=== PATIENT | female | born 1975 | race Two or more races ===

== ENCOUNTER 2022-05-01 10:06 | Emergency (ER) | payer OTHER, SELFPAY ==
[2022-05-01 10:12] VITALS: BP 116/70; PULSE 79; RESP 18; TEMP 36.8; O2SAT 98; BMI 36.6
--- NOTE | 2022-05-01 11:32 | ED.EXTPRO ---
HPI - Extremity Problem General Chief complaint: Extremity Injury, Upper Stated complaint: infected right thumb Time Seen by Provider: 05/01/22 11:32 Source: patient Mode of arrival: ambulatory Limitations: no limitations History of Present Illness HPI Narrative: 47-year-old female with no significant medical history presents for an infected right thumb. Patient states she pulled a hangnail off her right thumb and has had pain, swelling, redness, and pus developing along the nail line for the last week. Patient has drained it twice with a needle, and has drained some pus. Patient states it is not getting better despite her draining it and doing warm Epsom salt soaks patient feels well otherwise, no chest pain, no shortness of breath, no fevers, no lightheadedness, no dizziness Related Data Previous Rx's Medication Instructions Recorded doxycycline monohydrate 100 mg 100 mg PO BID 10 days #20 caps 05/01/22 capsule Allergies Allergy/AdvReac Type Severity Reaction Status Date / Time No Known Allergies Allergy Verified 05/01/22 11:33 Review of Systems Constitutional: Constitutional: Denies body ache(s), Denies chills, Denies fatigue, Denies fever(s), Denies headache(s), Denies malaise and Denies weakness Eyes: Eyes: Denies diplopia ENT: Denies vertigo, Denies dizziness, Denies otalgia, Denies headache(s), Denies mouth pain, Denies post nasal drip, Denies sinus pain, Denies sinus pressure, Denies sore throat and Denies throat swelling Cardiovascular: Cardiovascular: Denies chest pain, Denies syncope, Denies leg edema, Denies lightheadedness, Denies Loss of Consciousness, Denies palpitations and Denies dyspnea Respiratory: Respiratory: Denies chest congestion, Denies cough and Denies dyspnea Gastrointestinal: Gastrointestinal: Denies abdominal pain, Denies hematochezia, Denies constipation, Denies diarrhea and Denies vomiting Musculoskeletal: Comments: right thumb pain Integumentary/Breasts: Skin/Breast: Reports swelling and Reports erythema Comments: pus along nail edge right thumb Neurologic: Denies confusion, Denies vertigo, Denies dizziness, Denies syncope, Denies headache(s) and Denies weakness Psychiatric: Psychiatric: Denies anxiety, Denies confusion and Denies depression Endocrine: Endocrine: Denies fatigue and Denies palpitations Allergic/Immunologic: Allergic/Immunologic: Denies throat swelling PMFSH Social History Social History Advance Directives: No Advance Directives Information Provided: No Physical Exam Vital Signs: Vital Signs: Last Vital Signs Temp 98.3 F 05/01/22 10:12 Pulse 79 05/01/22 10:12 Resp 18 05/01/22 10:12 BP 116/70 05/01/22 10:12 Pulse Ox 98 05/01/22 10:12 O2 Del Method 05/01/22 10:12 BMI result Body Mass Index 36.6 Const: General: No confusion Nutritional Appearance: well nourished Orientation/consciousness: No confusion Limitations: no limitations Eyes: Conjunctivae: conjunctivae normal Pupils: Equal, round and reactive pupils present EOM: EOMs intact bilaterally Neck: Neck: Yes full ROM, Yes no lymphadenopathy and Yes supple Resp: Effort & Inspection: normal respiratory effort and able to speak in complete sentences Auscultation: clear to auscultation bilaterally, no crackles, no rales, no rhonchi and no wheezes Cardio: Rate: regular rate Rhythm: regular rhythm Heart sounds: S1 normal heart sound present and S2 normal heart sound present Skin: Other: redness, swelling, and pus under the skin along the nail bed of left thumb Neuro: General: No confusion Cranial nerves: Yes Equal, round and reactive pupils present Extrem: Left upper extremity: full ROM, normal capillary refill and hand Details: normal capillary refill, neuromotor exam normal, neurosensory exam normal, tenderness Location: of the thumb ( along nail bed) and normal ROM of fingers; no edema Psych: Appearance: grossly normal Affect: normal affect Attitude: cooperative Thought process: Normal thought process present Course Course Course Narrative: Right thumb paronychia patient has had redness, swelling, warmth, pus under the skin along the nail bed of her right thumb since pulling off a hangnail over week ago. Patient has been trying to drain it herself, using salt water soaks. Drained using 18 gauge needle, sterile technique used, 2 cc of pus expressed, place patient on doxycycline. Gave return precautions of worsening redness, swelling, warmth, fevers, patient verbalized agreement understanding of the plan. Discharge Plan Discharge Clinical Impression: Paronychia of finger of right hand Patient Disposition: Home, Self-Care Instructions: Paronychia (ED) Additional Instructions: please continue to soak your thumb, 10 minutes at a time in warm salt water 3 times a day for the next 3-4 days. Please take the antibiotics that I prescribed. Please do not really instrument your thumb. Please return to emergency room if you have worsening redness, pain, fevers, or any other new or concerning symptoms Prescriptions: New doxycycline monohydrate 100 mg capsule 100 mg PO BID 10 Days Qty: 20 0RF Interventions: ED Discharge Assessment Last Done: 05/01/22 11:40 Discharge Date/Time: 05/01/22 11:42
== END 2022-05-01 11:42 | disposition home or self-care (01) ==
PROVIDERS: Emergency Provider Emergency Medicine; PCP Internal Medicine
DX: L03.011 Cellulitis of right finger (principal); M79.644 Pain in right finger(s)
CPT/HCPCS: 10060; 10160; 99282; 99284

== ENCOUNTER 2022-11-10 13:00 | Outpatient (RCR) | payer OTHER, SELFPAY | END 2022-11-25 16:09 | disposition home or self-care (01) | LOC: HO.PT 13:00 | PROVIDERS: PCP Internal Medicine; Visit Provider Internal Medicine | DX: M54.9 Dorsalgia, unspecified (principal) | CPT/HCPCS: 97110; 97161 ==

== ENCOUNTER 2023-10-05 21:44 | Emergency (ER) | payer OTHER, SELFPAY ==
--- NOTE | ~2023-10-05 | XR_ITS ---
EXAMINATION: XR ANKLE, LEFT CLINICAL INFORMATION: Pain lateral malleolus COMPARISON: None available. TECHNIQUE: AP, lateral, and mortise views of the left ankle. FINDINGS: No fracture. No ankle joint effusion. Alignment is anatomic. No erosions. Joint spaces are maintained. Soft tissues are normal. A small accessory ossicle is present at the tip of the lateral malleolus. XR/XR ankle LT 2V IMPRESSION: Normal left ankle.
[2023-10-05 21:49] VITALS: BP 149/85; PULSE 81; RESP 18; TEMP 36.5; O2SAT 97; BMI 39.9
--- NOTE | 2023-10-05 21:58 | ED.LOWEXIN ---
HPI - Extremity Injury (Lower) General Chief Complaint: Extremity Injury, Lower Stated Complaint: L ankle pain Time Seen by Provider: 10/05/23 21:51 Source: patient Mode of arrival: ambulatory Limitations: no limitations History of Present Illness HPI Narrative: Patient comes to the emergency room complaining of left ankle pain on the lateral side for about 2 weeks. Patient states that she does not recall having any injuries, spraining her ankle or any blunt trauma. Patient states that it has been hurting constantly. No erythema, no increased warmth to the area. Patient states it feels like she sprained her ankle but without having any recent trauma. Patient denies pain in the lateral aspect of the foot or the heel. Patient states that she has history of claudication in the left leg. However, the pain that she is experiencing is constant, nonradiating, independent of exertion, but does hurt more bearing weight on the left foot Related Data Previous Rx's Medication Instructions Recorded doxycycline monohydrate 100 mg 100 mg PO BID 10 days #20 caps 05/01/22 capsule naproxen 500 mg tablet 500 mg PO BID PRN pain #14 tabs 10/05/23 Allergies Allergy/AdvReac Type Severity Reaction Status Date / Time No Known Allergies Allergy Verified 05/01/22 11:33 Review of Systems Review of Systems: Constitutional : No Weight loss, No Fever, No Chills, No Night Sweats, No Fatigue, No Malaise ENT/Mouth : No Hearing loss, No Ear Pain, No Nasal Congestion, No Sinus Pain, No Hoarseness, No sore throat, No Rhinorrhea, No Swallowing Difficulty Eyes: No Eye Pain, No Swelling, No Redness, No Foreign Body, No Discharge, No Vision Changes Cardiovascular : No Chest Pain, No SOB, No Dyspnea on Exertion, No Orthopnea, No Edema, No Palpitations Respiratory : No Cough, No Sputum, No Wheezing, No Smoke Exposure, No Dyspnea Gastrointestinal : No Nausea, No Vomiting, No Diarrhea, No Constipation, No abdominal Pain, No Hematochezia, No Melena Genitourinary : no irregular bleeding, No Dysuria, No Urinary Frequency, No Hematuria, No Urinary Incontinence, No Urgency, No Flank Pain, No Urinary Flow Changes, No Hesitancy Musculoskeletal : Complaining of left ankle pain in the lateral aspect, No Myalgias, No Joint Swelling Skin : No Skin Lesions, No rash Neuro : No Weakness, No Numbness, No Paresthesias, No Loss of Consciousness, No Dizziness, No Headache Psych : No Anxiety/Panic, No Depression, No SI/HI/AH/VH, No Social Issues, Heme/Lymph: No Bruising, No Bleeding,No Lymphadenopathy Endocrine : No Polyuria, No Polydipsia, No Temperature Intolerance [facility] Past Medical History Medical History (Updated 10/05/23 @ 23:32 by Rhea Baumann MD) Claudication Social History Social History Advance Directives: No Advance Directives Information Provided: No Physical Exam Vital Signs: Vital Signs: Last Vital Signs Temp 97.7 F 10/05/23 21:49 Pulse 81 10/05/23 21:49 Resp 18 10/05/23 21:49 BP 149/85 H 10/05/23 21:49 Pulse Ox 97 10/05/23 21:49 O2 Del Method Room Air 10/05/23 21:49 BMI result Body Mass Index 39.9 Const: Other: Appearance: Alert. Oriented X3. No acute distress. Eyes: Pupils equal, round and reactive to light. ENT: Pharynx normal. Neck: Normal inspection. Neck supple. No lymph nodes noted. No crepitus CVS: Normal heart rate and rhythm. Pulses normal. Normal S1 and S2 Respiratory: No respiratory distress. Breath sounds normal. No Wheezing. No rales Abdomen: Soft and nontender. No rigidity. No distention. Skin: Skin warm and dry. Normal skin color. Normal skin turgor. Extremities: No lower extremity edema, no swelling around the lateral malleolus on the left ankle, no pain to palpation on the lateral aspect of the foot, no heel pain, no pain in the Achilles tendon Neuro: Oriented X 3. No motor deficit. No sensory deficit. Moving all extremities. No slurred speech. CN 2 through 12 grossly intact Psych: calm, cooperative, normal affect Course Course Course Narrative: -x-rays pending Medical Decision Making Medical Decision Making MDM Narrative: -I discussed the physical exam with the patient, patient has no erythema, swelling, no obvious deformity. -we will obtain an x-ray to rule out any bony abnormality. However, I discussed with the patient that she will likely need a follow-up with Orthopedics and get an MRI -patient states that she does not want any pain medications, declines NSAIDs/anti inflammatories for now, but accept a prescription -gout, septic arthritis is not suspected -my interpretation of x-ray: No obvious fracture, normal alignment. Differential Diagnosis Differential Diagnoses: The differential diagnosis associated with the presentation includes (Ankle contusion, concussion, ankle sprain, tendinitis) Independent Interpretation I performed an independent interpretation of an: Plain X-Ray Radiology Impression Discussion of test interpretation with radiology: I have reviewed the radiologist's reading. Radiologist Impression: FINDINGS: No fracture. No ankle joint effusion. Alignment is anatomic. No erosions. Joint spaces are maintained. Soft tissues are normal. A small accessory ossicle is present at the tip of the lateral malleolus. XR/XR ankle LT 2V IMPRESSION: Normal left ankle Discharge Plan Discharge Clinical Impression: Ankle joint pain Patient Disposition: Home, Self-Care Instructions: Arthralgia (ED) Additional Instructions: Please follow-up with your primary care physician tomorrow. If you have any worsening or new symptoms, please return to the emergency room or call 911 Prescriptions: New naproxen 500 mg tablet 500 mg PO BID PRN (Reason: pain) Qty: 14 0RF No Action doxycycline monohydrate 100 mg capsule 100 mg PO BID 10 Days Qty: 20 0RF Referrals: Jayashree Silveira PA-C [Physician Chemical Worker] - 10/06/23
== END 2023-10-05 23:40 | disposition home or self-care (01) ==
PROVIDERS: Emergency Provider Emergency Medicine; PCP Internal Medicine
DX: M25.572 Pain in left ankle and joints of left foot (principal)
CPT/HCPCS: 73600; 99283

== ENCOUNTER 2023-11-06 23:31 | Emergency (ER) | payer OTHER, SELFPAY ==
[2023-11-06 23:41] VITALS: BP 134/66; PULSE 71; RESP 18; TEMP 36.8; O2SAT 98; BMI 39.7
--- NOTE | 2023-11-06 23:59 | ED_ITS ---
HPI - Extremity Injury (Lower) General Chief Complaint: Extremity Injury, Lower Stated Complaint: left ankle pain Time Seen by Provider: 11/06/23 23:58 Source: patient Mode of arrival: ambulatory Limitations: no limitations History of Present Illness HPI Narrative: Patient with History of plantar fasciitis been having pain in the left ankle for over a month seen by account leader will give cortisone injection in the joint still having the pain has slight swelling of the ankle joint no history of gout no history of any other joint pain patient's x-ray done before which was negative Related Data Previous Rx's Medication Instructions Recorded doxycycline monohydrate 100 mg 100 mg PO BID 10 days #20 caps 05/01/22 capsule naproxen 500 mg tablet 500 mg PO BID PRN pain #14 tabs 10/05/23 prednisone 20 mg tablet 40 mg (2 x 20 mg) PO DAILY #10 tabs 11/07/23 Allergies Allergy/AdvReac Type Severity Reaction Status Date / Time No Known Allergies Allergy Verified 11/06/23 23:47 Review of Systems 2 Review of Systems: Yes all other systems are reviewed and are negative [facility] Past Medical History Medical History (Updated 11/07/23 @ 00:24 by Puneet Hanna MD) Plantar fasciitis Claudication Social History Social History Smoked in Last 30 Days: No Use of substances other than those prescribed or required for medical reasons: No Advance Directives: No Advance Directives Information Provided: No Patient : No Physical Exam 2 Vital Signs: Vital Signs: Last Vital Signs Temp 98.3 F 11/06/23 23:41 Pulse 71 11/06/23 23:41 Resp 18 11/06/23 23:41 BP 134/66 11/06/23 23:41 Pulse Ox 98 11/06/23 23:41 O2 Del Method Room Air 11/06/23 23:41 BMI result Body Mass Index 39.7 Appearance: Alert. Oriented X3. No acute distress. CVS: Normal heart rate and rhythm. Pulses normal. Respiratory: No respiratory distress. Equal air entry bilateral, Extremities: No lower extremity edema. No calf tenderness diffuse tenderness left ankle joint with slight swelling no skin warmth good range of movement no tenderness in the sole of the foot Neuro: Oriented X 3. Medications Administered Discontinued Medications Generic Name Dose Route Start Last Admin Trade Name Scott PRN Reason Stop Dose Admin Prednisone 60 mg 11/07/23 00:19 11/07/23 00:56 Prednisone 20 Mg Tablet PO 11/07/23 00:20 60 mg ONCE ONE Administration Medical Decision Making Medical Decision Making [facility] Narrative: Patient arthritis of left ankle no history of gout no signs of infection will do basic labs including uric acid and CRP, give course of prednisone Differential Diagnosis Differential Diagnoses: The differential diagnosis associated with the presentation includes Gout/arthritis Lab Data [facility] Lab Attestation statement: I reviewed the patient's lab results. 11/07/23 00:54 11/07/23 00:54 Labs: Lab Results 11/07/23 Range/Units 00:54 WBC 9.4 (4.8-10.8) X10*3/uL RBC 4.39 (4.20-5.50) X10*6/uL Hgb 12.7 (12.0-16.0) g/dl Hct 39.0 (37.0-47.0) % MCV 88.8 (80.0-98.0) fL MCH 28.9 (27.0-33.0) pg MCHC 32.6 (31.0-35.0) g/dl RDW 14.3 (11.0-16.0) % Plt Count 279 (160-400) X10*3/uL MPV 10.0 (9.4-12.3) fL Immature Gran % (Auto) 0.2 (0.0-0.4) % Neut % (Auto) 50.3 (45-73) % Lymph % (Auto) 34.1 (20-40) % Ponce % (Auto) 11.3 H (2-11) % Eos % (Auto) 3.6 (0-4) % Baso % (Auto) 0.5 (0-2) % Lymph # (Auto) 3.2 (1.2-4.9) X10*3/uL Ponce # (Auto) 1.1 (0.1-1.2) X10*3/uL Eos # (Auto) 0.3 (0.0-0.4) X10*3/uL Baso # (Auto) 0.1 (0.0-0.2) X10*3/uL Abs Immat Gran (auto) 0.02 (0.00-0.03) X10*3/uL Absolute Neuts (auto) 4.7 (2.0-8.3) x10*3/uL Absolute Nucleated RBC 0.000 (0.0-0.012) X10*3/uL Nucleated RBC % (auto) 0.0 (0.0-0.2) /100WBC Sodium 141 (135-145) mmol/L Potassium 3.8 (3.3-5.1) mmol/L Chloride 108 (96-108) mmol/L Carbon Dioxide 26 (22-29) mmol/L Anion Gap 11 L (12-20) BUN 18 H (9-16) mg/dL Creatinine 0.87 (0.5-1.4) mg/dL Estim Creat Clear Calc 91.9 Estimated GFR > 60 Random Glucose 107 (60-115) mg/dL Uric Acid 5.2 (2.4-5.7) mg/dL Calcium 8.8 (8.4-10.2) mg/dL C-Reactive Protein 0.28 (< or = 0.50) mg/dL Discharge Plan Discharge Clinical Impression: Arthritis Patient Disposition: Home, Self-Care Instructions: Arthritis (ED) Additional Instructions: Take prednisone as prescribed Ibuprofen as needed Follow-up with account leader Prescriptions: New prednisone 20 mg tablet 40 mg PO DAILY Qty: 10 0RF No Action doxycycline monohydrate 100 mg capsule 100 mg PO BID 10 Days Qty: 20 0RF naproxen 500 mg tablet 500 mg PO BID PRN (Reason: pain) Qty: 14 0RF Interventions: ED Discharge Assessment Last Done: 11/07/23 01:03 Discharge Date/Time: 11/07/23 01:04
[2023-11-07] MEDS: predniSONE 20 MG TABLET 60 MG PO (00:56)
[2023-11-07 01:00] LABS: MANUAL DIFF FLAG NO
[2023-11-07 01:01] LABS: Basophils Absolute Auto 0.1 X10*3/uL (0.0-0.2); Basophils Percent Auto 0.5 % (0-2); Eosinophils Absolute Auto 0.3 X10*3/uL (0.0-0.4); Eosinophils Percent Auto 3.6 % (0-4); Hemoglobin 12.7 g/dl (12.0-16.0); Imm Gran Abs Auto 0.02 X10*3/uL (0.00-0.03); Imm Gran Pct Auto 0.2 % (0.0-0.4); Lymphocytes Absolute Auto 3.2 X10*3/uL (1.2-4.9); Lymphocytes Percent Auto 34.1 % (20-40); Mean Corpuscular HGB Conc 32.6 g/dl (31.0-35.0); Mean Corpuscular Hemoglobin 28.9 pg (27.0-33.0); Mean Corpuscular Volume 88.8 fL (80.0-98.0); Monocytes Absolute Auto 1.1 X10*3/uL (0.1-1.2); Monocytes Percent Auto 11.3 % (2-11); Neutrophils Absolute Auto 4.7 x10*3/uL (2.0-8.3); Neutrophils Percent Auto 50.3 % (45-73); Platelet Count 279 X10*3/uL (160-400); Red Blood Count 4.39 X10*6/uL (4.20-5.50); Red Cell Distribution Width 14.3 % (11.0-16.0); White Blood Count 9.4 X10*3/uL (4.8-10.8)
--- NOTE | 2023-11-07 01:02 | PC.NURSE ---
pt medicated according to mar per ed provider, pt okay to have labs drawn and discharge does not need to stay for results of labs. pt agreeable to this plan. pt ambulatory at discharge. pt provided with discharge packet. pt verbalized understanding of discharge plan
[2023-11-07 01:18] LABS: Anion Gap 11 (12-20); Blood Urea Nitrogen 18 mg/dL (9-16); C Reactive Protein 0.28 mg/dL (< or = 0.50); Calcium 8.8 mg/dL (8.4-10.2); Carbon Dioxide 26 mmol/L (22-29); Chloride 108 mmol/L (96-108); Creatinine Clr Calc Pharmacy 91.9; Estimated Glomerular Filt Rate > 60; Glucose Random 107 mg/dL (60-115); Potassium 3.8 mmol/L (3.3-5.1); Sodium 141 mmol/L (135-145); Uric Acid 5.2 mg/dL (2.4-5.7)
[2023-11-07 01:35] LABS: Erythrocyte Sedimentation Rate 2 MM/HR (0-20)
== END 2023-11-07 01:04 | disposition home or self-care (01) ==
PROVIDERS: Emergency Provider Internal Medicine; PCP Internal Medicine
DX: M19.072 Primary osteoarthritis, left ankle and foot (principal); M25.572 Pain in left ankle and joints of left foot
CPT/HCPCS: 36415; 80048; 84550; 85025; 85652; 86140; 99283; 99284

== ENCOUNTER 2024-03-22 19:38 | Observation (INO) | payer OTHER, SELFPAY ==
--- NOTE | 2024-03-22 | ECG_ITS ---
Test Reason : CHEST PAIN Blood Pressure : / mmHG Vent. Rate : 068 BPM Atrial Rate : 068 BPM P-R Int : 176 ms QRS Dur : 072 ms QT Int : 382 ms P-R-T Axes : 058 023 024 degrees QTc Int : 406 ms Normal sinus rhythm Low voltage QRS Borderline ECG When compared with ECG of 22-MAR-2024 19:38, No significant change was found Referred By: Generic ED Physician Electronically Signed By:MESHA HOPE
--- NOTE | ~2024-03-22 | CT_ITS ---
EXAMINATION: CT CERVICAL SPINE WITHOUT CONTRAST CLINICAL INFORMATION: Syncope, fall. COMPARISON: None. TECHNIQUE: Contiguous axial imaging was performed of the cervical spine without intravenous administration of contrast. Coronal and sagittal reformats were obtained at the acquisition workstation. This CT examination was performed using dose optimization techniques as appropriate, variously including the following: *Automated exposure control *Adjustment of mA and/or kV according to patient size (this includes techniques or standardized protocols for targeted exams where dose is matched to indication/reason for exam; i.e. extremities or head) *Use of iterative reconstruction technique DLP: 508 mGy-cm FINDINGS: The atlantooccipital and atlantoaxial articulations remain well aligned. Straightening of the normal cervical lordosis. Otherwise, there is anatomic alignment of the vertebral bodies and posterior elements. No evidence of acute fracture or subluxation. Mild multilevel intervertebral disc height loss and facet/uncovertebral hypertrophy. There is no prevertebral soft tissue swelling. Enlarged, heterogeneous left lobe of the thyroid. Remaining cervical soft tissues are normal in appearance. The lung apices demonstrate no abnormalities. CT/CT cervical spine wo IV con IMPRESSION: 1. No acute cervical abnormalities. 2. Enlarged, heterogeneous left lobe of the thyroid. Recommend further evaluation with thyroid ultrasound.
--- NOTE | ~2024-03-22 | CT_ITS ---
EXAMINATION: CTA CHEST CT ABDOMEN AND PELVIS WITH CONTRAST CLINICAL INFORMATION: Syncope. Elevated wbc and lactic acid. Concern for ischemic bowel. COMPARISON: None. TECHNIQUE: A noncontrast localizer was performed, followed by the administration of 85 mL Omnipaque [address] of the chest was then performed. Coronal and sagittal reformatted and 3-D technique MIP images of the chest were completed at the CT scanner and reviewed on the PACS workstation. No adverse effects were reported. Images were then performed through the abdomen and pelvis. Coronal and sagittal reformatted images performed at CT scanner by technologist. [This CT examination was performed using dose optimization techniques as appropriate, variously including the following: *Automated exposure control *Adjustment of mA and/or kV according to patient size (this includes techniques or standardized protocols for targeted exams where dose is matched to indication/reason for exam; i.e. extremities or head) *Use of iterative reconstruction technique] DLP: 1147 mGy-cm. FINDINGS: CTA CHEST Vascular: The main pulmonary artery, secondary and tertiary branches of the pulmonary artery are normally opacified with no evidence of pulmonary embolism. The aorta and great vessels are unremarkable. Mediastinum: No mediastinal mass. No significant lymphadenopathy. There is no pericardial effusion. CORONARY ARTERIES: Volume of coronary calcification:None Lungs: The lungs are clear. No nodule or infiltrate. Central bronchial airways open. Fluid: There is no pericardial effusion. There is no pleural effusion. Axilla: No significant lymphadenopathy. CT SCAN ABDOMEN/PELVIS: Liver, Gallbladder and Biliary Tree: Small hepatic cyst left lobe of liver. No suspicious liver lesions. No intrahepatic bile duct dilatation. The gallbladder is unremarkable with no evidence of radiopaque gallstones, gallbladder wall thickening, or obvious pericholecystic inflammatory changes. Pancreas: Unremarkable. Spleen: Unremarkable. Adrenal Glands: Unremarkable. Kidneys and Ureters: The kidneys are normal in size, shape, and attenuation. No hydronephrosis, hydroureter, or calculi seen. No perinephric stranding. Bladder: Unremarkable. Gastrointestinal Tract: The small and large bowel are unremarkable. Status post appendectomy. Abdominal Wall: No significant hernia is appreciated. Lymph Nodes: Normal. Vascular: Unremarkable. Pelvic Viscera: Uterus is anteverted. IUD in endometrial cavity. No adnexal abnormality. Osseous Structures: Unremarkable. CT/CT angio chest PE protocol IMPRESSION: 1. No evidence of pulmonary embolism. No acute change of chest. 2. No acute abnormality the abdomen or pelvis.
--- NOTE | ~2024-03-22 | XR_ITS ---
EXAMINATION: XR CHEST CLINICAL INFORMATION: Pneumonia. COMPARISON: None available. TECHNIQUE: Frontal view of the chest was obtained. FINDINGS: The lungs are clear. The cardiomediastinal silhouette is normal in size. There is no pleural effusion or pneumothorax. No acute osseous abnormality. XR/XR chest 1V IMPRESSION: No acute cardiopulmonary findings.
--- NOTE | ~2024-03-22 | CT_ITS ---
EXAMINATION: CT HEAD WITHOUT CONTRAST CLINICAL INFORMATION: Hit head. Syncope. COMPARISON: None available. TECHNIQUE: Contiguous axial imaging was performed from the skull base to vertex without intravenous administration of contrast. This CT examination was performed using dose optimization techniques as appropriate, variously including the following: *Automated exposure control *Adjustment of mA and/or kV according to patient size (this includes techniques or standardized protocols for targeted exams where dose is matched to indication/reason for exam; i.e. extremities or head) *Use of iterative reconstruction technique DLP: 1159 mGy-cm FINDINGS: There is no acute intracranial hemorrhage. There is no evidence of acute/subacute cerebral or cerebellar infarction. There is no mass effect or midline shift. There is no extra-axial fluid collection. The ventricles are normal in size and configuration. The orbits are symmetric and within normal limits. The calvarium is intact. The mastoid air cells are clear. The visualized paranasal sinuses are well aerated. CT/CT head/brain wo IV con IMPRESSION: No acute intracranial pathology.
--- NOTE | 2024-03-22 17:38 | ECG_ITS ---
Test Reason : SYNCOPE Blood Pressure : / mmHG Vent. Rate : 075 BPM Atrial Rate : 075 BPM P-R Int : 170 ms QRS Dur : 066 ms QT Int : 368 ms P-R-T Axes : 044 035 021 degrees QTc Int : 410 ms Normal sinus rhythm Normal ECG No previous ECGs available Referred By: Kam Wood Electronically Signed By:MESHA HOPE
--- NOTE | 2024-03-22 19:46 | ED_ITS ---
HPI - General Adult General Chief complaint: General Medical Stated complaint: light headed Time Seen by Provider: 03/22/24 19:43 Source: patient Mode of arrival: ambulatory Limitations: no limitations History of Present Illness HPI narrative: 49 yold female with pmh of partial thyroidectomy presents to the ED for syncopal episode that occurred during her ED shift. patient is an printer repair technician. patient was in a patinet room and felt lightheadedness so she sat on the floor and than passed out. Patient states no significant medical history besides enlarged thryoid. patient states around 6pm she had 800ml of plasma donated and on a new machine. patient thinks the machine took too much blood from her. Patient denies any chest pain or headache before syncopal episode. Related Data Home Medications ?Medication ?Instructions ?Recorded ?Confirmed betamethasone dipropionate 0.05 % 1 appl topical BID PRN ECZEMA FLARE 03/23/24 03/23/24 topical cream semaglutide (weight loss) 0.25 0.25 mg subcut DUFF 03/23/24 03/23/24 mg/0.5 mL subcutaneous pen injector (Wegovy) Allergies Allergy/AdvReac Type Severity Reaction Status Date / Time No Known Allergies Allergy Verified 03/22/24 19:55 Review of Systems 2 Review of Systems: SYncope Yes all other systems are reviewed and are negative [facility] Past Medical History Medical History Plantar fasciitis Claudication Social History Social History Alcohol intake: never Patient Tobacco Use Status: Never used Tobacco service: No Physical Exam ED Vital Signs: BMI result Body Mass Index 39.5 Const General: cooperative, healthy appearing, comfortable, no acute distress, well developed, alert, awake and Physically active Orientation/consciousness: patient oriented x3 HENMT Head: Yes normal to inspection, Yes No palpable skull fracture present, Yes normocephalic and Yes atraumatic Ears: hearing grossly normal bilaterally, external ears normal, TM's normal bilaterally, TM normal on the right, TM normal on the left, EAC's normal, mastoids normal and periauricular adenopathy noted Eyes General: appearance normal, both eyes and all related structures Neck Neck: Yes normal visual inspection, Yes full ROM, Yes no lymphadenopathy, Yes no meningeal signs, Yes trachea midline, Yes supple, No anterior neck swelling and No tender Chest Chest palpation & inspection: normal inspection of the chest and normal palpation of entire chest wall Resp Effort & Inspection: normal respiratory effort and able to speak in complete sentences Auscultation: clear to auscultation bilaterally Cardio Jugular venous distension: no JVD Heart sounds: S1 normal heart sound present and S2 normal heart sound present GI Inspection: Yes normal to inspection Palpation (GI): Soft to palpation, not firm, nontender, no guarding and not rigid General: Yes no CVA tenderness Back/Spine/Pelvis Back: no CVA tenderness and No back tenderness Skin General skin exam: no rashes or lesions noted, elasticity normal and turgor normal Neuro General: patient oriented x3, gait normal, tone normal, moves all extremities, Normal light touch and pain sensation, no meningeal signs, no focal motor deficits, CN's II-XI intact bilaterally and normal sensation to monofilament Extrem General: Yes normal to inspection, Yes full ROM and Yes capillary refill normal Psych Appearance: grossly normal, well kempt and not disheveled Medications Administered Discontinued Medications Generic Name Dose Route Start Last Admin Trade Name Freq PRN Reason Stop Dose Admin Sodium Chloride 1,000 mls @ 999 mls/hr 03/22/24 19:44 03/22/24 21:00 Ns IV 03/22/24 20:44 Infused .Q1H1M STA Infusion Sodium Chloride 1,000 mls @ 999 mls/hr 03/22/24 19:45 03/22/24 21:05 Ns IV 03/22/24 20:45 Infused .Q1H1M STA Infusion Ceftriaxone Sodium 1 gm/ 50 mls @ 100 mls/hr 03/22/24 22:24 03/22/24 23:30 Sodium Chloride IV 03/22/24 22:53 Infused ONCE ONE Infusion Iohexol 85 ml 03/22/24 22:29 03/22/24 22:29 Iohexol 350 Mg/Ml 100 Ml Infus..Btl IV 03/22/24 22:30 85 ml ONCE ONE Administration Sodium Chloride 3 ml 03/23/24 08:00 03/23/24 11:26 0.9 % Sodium Chloride Flush 3 Ml Syringe IVFLUSH 3 ml [facility] Administration Medical Decision Making Medical Decision Making [facility] Narrative: 49 yold female with pmh of partial thyroidectomy presents to the ED for syncopal episode during ED shift. Patient has no neuro deficits. Patient has elevated WBC so plan to check for source of infection. SARS negative. UA negative. Due to Syncope CHest CTA was ordered and negative for PE or pneumonia. Abdominal CT scan was normal. Head CT/Cervical Spine negative. Orthostatics negative. Patient second troponin positive. Repeat WBC decreased. Case discussed with Cardiologsit Dr. Nelson. Repeat EKg was done. Optical Glass Etcher recommends admission, but no heparin. Patient admitted by Hospitaltist Dr. Edwards Differential Diagnosis Differential Diagnoses: The differential diagnosis associated with the presentation includes (syncope, [place], PE, ) Admission/Observation Consideration of admission/observation: Escalation of care including admission/observation considered Consult Healthcare Provider Management of the patient was discussed with: Hospitalist (Dr. Edwards) and Consulting Engineer (Dr. Reid Optical Glass Etcher) Lab Data [facility] Lab Attestation statement: I reviewed the patient's lab results. 03/23/24 04:52 03/23/24 04:52 Labs: Lab Results 03/22/24 03/22/24 03/22/24 Range/Units 19:35 19:44 19:45 WBC 22.2 H (4.8-10.8) X10*3/uL RBC 4.95 (4.20-5.50) X10*6/uL Hgb 14.6 (12.0-16.0) g/dl Hct 43.1 (37.0-47.0) % MCV 87.1 (80.0-98.0) fL MCH 29.5 (27.0-33.0) pg MCHC 33.9 (31.0-35.0) g/dl RDW 13.6 (11.0-16.0) % Plt Count 343 (160-400) X10*3/uL MPV 10.3 (9.4-12.3) fL Immature Gran % (Auto) 0.7 H (0.0-0.4) % Neut % (Auto) 57.0 (45-73) % Lymph % (Auto) 30.0 (20-40) % [place] % (Auto) 11.0 (2-11) % Eos % (Auto) 1.0 (0-4) % Baso % (Auto) 0.3 (0-2) % Lymph # (Auto) 6.7 H (1.2-4.9) X10*3/uL [place] # (Auto) 2.5 H (0.1-1.2) X10*3/uL Eos # (Auto) 0.2 (0.0-0.4) X10*3/uL Baso # (Auto) 0.1 (0.0-0.2) X10*3/uL Abs Immat Gran (auto) 0.16 H (0.00-0.03) X10*3/uL Absolute Neuts (auto) 12.7 H (2.0-8.3) x10*3/uL Absolute Nucleated RBC 0.000 (0.0-0.012) X10*3/uL Nucleated RBC % (auto) 0.0 (0.0-0.2) /100WBC Smear Tech's Comments VERIFIED PT (11.1-13.3) SEC INR (0.9-1.1) APTT (26.0-36.8) SEC Sodium 137 (135-145) mmol/L Potassium 3.6 (3.3-5.1) mmol/L Chloride 106 (96-108) mmol/L Carbon Dioxide 21 L (22-29) mmol/L Anion Gap 14 (12-20) BUN 23 H (9-16) mg/dL Creatinine 1.02 (0.5-1.4) mg/dL Estim Creat Clear Calc 77.4 Estimated GFR 58 POC Glucose 121 H (60-115) mg/dL Random Glucose 134 H (60-115) mg/dL Lactic Acid (0.5-2.0) mmol/L Lactic Acid F/U @ 2Hr (0.5-2.0) mmol/L Calcium 8.5 (8.4-10.2) mg/dL Magnesium 1.8 (1.6-2.6) mg/dL Total Bilirubin 0.3 (0.0-1.0) mg/dL Direct Bilirubin 0.1 (0.0-0.5) mg/dL AST 14 (5-31) U/L ALT 18 (0-31) U/L Alkaline Phosphatase 61 (39-117) U/L Troponin I High Sens (<3.5-17.0) ng/L Total Protein 6.1 L (6.5-8.0) g/dL Albumin 3.4 L (3.5-5.0) g/dL Beta HCG, Quant mIU/mL Urine Color Urine Appearance Urine pH (5.0-9.0) Ur Specific Huffman (1.005-1.025) Urine Protein (Neg-Trace) mg/dL Urine Glucose (UA) (Negative) mg/dL Urine Ketones (Negative) mg/dL Urine Blood (Negative) Urine Nitrite (Negative) Ur Leukocyte Esterase (Negative) Urine RBC (0-2) /HPF Urine WBC (0-5) /HPF Ur Squamous Epith Cells (0-2) /HPF Urine Bacteria (None Seen) Hyaline Casts (0-2) /LPF Influenza Type A (PCR) (Negative) Influenza Type B (PCR) (Negative) RSV RNA Qual (PCR) (Negative) SARS-CoV-2 RNA (RT-PCR) (Negative) Blood Type O Positive Antibody Screen NEGATIVE 03/22/24 03/22/24 03/22/24 Range/Units 19:47 20:29 20:33 WBC (4.8-10.8) X10*3/uL RBC (4.20-5.50) X10*6/uL Hgb (12.0-16.0) g/dl Hct (37.0-47.0) % MCV (80.0-98.0) fL MCH (27.0-33.0) pg MCHC (31.0-35.0) g/dl RDW (11.0-16.0) % Plt Count (160-400) X10*3/uL MPV (9.4-12.3) fL Immature Gran % (Auto) (0.0-0.4) % Neut % (Auto) (45-73) % Lymph % (Auto) (20-40) % [place] % (Auto) (2-11) % Eos % (Auto) (0-4) % Baso % (Auto) (0-2) % Lymph # (Auto) (1.2-4.9) X10*3/uL [place] # (Auto) (0.1-1.2) X10*3/uL Eos # (Auto) (0.0-0.4) X10*3/uL Baso # (Auto) (0.0-0.2) X10*3/uL Abs Immat Gran (auto) (0.00-0.03) X10*3/uL Absolute Neuts (auto) (2.0-8.3) x10*3/uL Absolute Nucleated RBC (0.0-0.012) X10*3/uL Nucleated RBC % (auto) (0.0-0.2) /100WBC Smear Tech's Comments PT 12.8 (11.1-13.3) SEC INR 1.1 (0.9-1.1) APTT 21.6 L (26.0-36.8) SEC Sodium (135-145) mmol/L Potassium (3.3-5.1) mmol/L Chloride (96-108) mmol/L Carbon Dioxide (22-29) mmol/L Anion Gap (12-20) BUN (9-16) mg/dL Creatinine (0.5-1.4) mg/dL Estim Creat Clear Calc Estimated GFR POC Glucose (60-115) mg/dL Random Glucose (60-115) mg/dL Lactic Acid 2.2 H* (0.5-2.0) mmol/L Lactic Acid F/U @ 2Hr (0.5-2.0) mmol/L Calcium (8.4-10.2) mg/dL Magnesium (1.6-2.6) mg/dL Total Bilirubin (0.0-1.0) mg/dL Direct Bilirubin (0.0-0.5) mg/dL AST (5-31) U/L ALT (0-31) U/L Alkaline Phosphatase (39-117) U/L Troponin I High Sens < 2.7 (<3.5-17.0) ng/L Total Protein (6.5-8.0) g/dL Albumin (3.5-5.0) g/dL Beta HCG, Quant < 2 mIU/mL Urine Color Urine Appearance Urine pH (5.0-9.0) Ur Specific Huffman (1.005-1.025) Urine Protein (Neg-Trace) mg/dL Urine Glucose (UA) (Negative) mg/dL Urine Ketones (Negative) mg/dL Urine Blood (Negative) Urine Nitrite (Negative) Ur Leukocyte Esterase (Negative) Urine RBC (0-2) /HPF Urine WBC (0-5) /HPF Ur Squamous Epith Cells (0-2) /HPF Urine Bacteria (None Seen) Hyaline Casts (0-2) /LPF Influenza Type A (PCR) NEGATIVE (Negative) Influenza Type B (PCR) NEGATIVE (Negative) RSV RNA Qual (PCR) NEGATIVE (Negative) SARS-CoV-2 RNA (RT-PCR) NEGATIVE (Negative) Blood Type Antibody Screen 03/22/24 03/22/24 Range/Units 23:21 23:34 WBC 16.0 H (4.8-10.8) X10*3/uL RBC 4.44 (4.20-5.50) X10*6/uL Hgb 13.4 (12.0-16.0) g/dl Hct 39.3 (37.0-47.0) % MCV 88.5 (80.0-98.0) fL MCH 30.2 (27.0-33.0) pg MCHC 34.1 (31.0-35.0) g/dl RDW 13.6 (11.0-16.0) % Plt Count 289 (160-400) X10*3/uL MPV 10.1 (9.4-12.3) fL Immature Gran % (Auto) 0.6 H (0.0-0.4) % Neut % (Auto) 63.0 (45-73) % Lymph % (Auto) 23.8 (20-40) % [place] % (Auto) 11.6 H (2-11) % Eos % (Auto) 0.9 (0-4) % Baso % (Auto) 0.1 (0-2) % Lymph # (Auto) 3.8 (1.2-4.9) X10*3/uL [place] # (Auto) 1.9 H (0.1-1.2) X10*3/uL Eos # (Auto) 0.2 (0.0-0.4) X10*3/uL Baso # (Auto) 0.0 (0.0-0.2) X10*3/uL Abs Immat Gran (auto) 0.10 H (0.00-0.03) X10*3/uL Absolute Neuts (auto) 10.0 H (2.0-8.3) x10*3/uL Absolute Nucleated RBC 0.000 (0.0-0.012) X10*3/uL Nucleated RBC % (auto) 0.0 (0.0-0.2) /100WBC Smear Tech's Comments PT (11.1-13.3) SEC INR (0.9-1.1) APTT (26.0-36.8) SEC Sodium (135-145) mmol/L Potassium (3.3-5.1) mmol/L Chloride (96-108) mmol/L Carbon Dioxide (22-29) mmol/L Anion Gap (12-20) BUN (9-16) mg/dL Creatinine (0.5-1.4) mg/dL Estim Creat Clear Calc Estimated GFR POC Glucose (60-115) mg/dL Random Glucose (60-115) mg/dL Lactic Acid (0.5-2.0) mmol/L Lactic Acid F/U @ 2Hr 1.0 (0.5-2.0) mmol/L Calcium (8.4-10.2) mg/dL Magnesium (1.6-2.6) mg/dL Total Bilirubin (0.0-1.0) mg/dL Direct Bilirubin (0.0-0.5) mg/dL AST (5-31) U/L ALT (0-31) U/L Alkaline Phosphatase (39-117) U/L Troponin I High Sens 37.8 H D (<3.5-17.0) ng/L Total Protein (6.5-8.0) g/dL Albumin (3.5-5.0) g/dL Beta HCG, Quant mIU/mL Urine Color Yellow Urine Appearance Clear Urine pH 6.5 (5.0-9.0) Ur Specific Huffman >= 1.030 H (1.005-1.025) Urine Protein Negative (Neg-Trace) mg/dL Urine Glucose (UA) Negative (Negative) mg/dL Urine Ketones Negative (Negative) mg/dL Urine Blood Small (1+) H (Negative) Urine Nitrite Negative (Negative) Ur Leukocyte Esterase Negative (Negative) Urine RBC 0-2 (0-2) /HPF Urine WBC 0-5 (0-5) /HPF Ur Squamous Epith Cells 0-2 (0-2) /HPF Urine Bacteria None Seen (None Seen) Hyaline Casts 0-2 (0-2) /LPF Influenza Type A (PCR) (Negative) Influenza Type B (PCR) (Negative) RSV RNA Qual (PCR) (Negative) SARS-CoV-2 RNA (RT-PCR) (Negative) Blood Type Antibody Screen Independent Interpretation I performed an independent interpretation of an: EKG (Normal Sinus Rhythm. Negative STEMI) Independent Historian Clinical information obtained from an independent historian. History obtained from or confirmed by: Other (patient) External Record Review External record reviewed: Other (prior visits) Discharge Plan Discharge Clinical Impression: Syncope Patient Disposition: Home, Self-Care Interventions: ED Discharge Assessment Last Done: 03/23/24 12:24 Discharge Date/Time: 03/23/24 12:25
[2024-03-22 19:55] VITALS: BP 113/72; PULSE 66; RESP 19; TEMP 36.4; O2SAT 92; BMI 39.5
[2024-03-22] MEDS: 0.9 % Sodium Chloride 1,000 ML 999 ML IV ×2 (19:58→20:00)
[2024-03-22 20:05] LABS: Basophils Absolute Auto 0.1 X10*3/uL (0.0-0.2); Basophils Percent Auto 0.3 % (0-2); Eosinophils Absolute Auto 0.2 X10*3/uL (0.0-0.4); Hematocrit 43.1 % (37.0-47.0); Hemoglobin 14.6 g/dl (12.0-16.0); Imm Gran Abs Auto 0.16 X10*3/uL (0.00-0.03); Imm Gran Pct Auto 0.7 % (0.0-0.4); MANUAL DIFF FLAG SCAN; Mean Corpuscular HGB Conc 33.9 g/dl (31.0-35.0); Mean Corpuscular Hemoglobin 29.5 pg (27.0-33.0); Mean Corpuscular Volume 87.1 fL (80.0-98.0); Mean Platelet Volume 10.3 fL (9.4-12.3); Monocytes Absolute Auto 2.5 X10*3/uL (0.1-1.2); Neutrophils Absolute Auto 12.7 x10*3/uL (2.0-8.3); Platelet Count 343 X10*3/uL (160-400); Red Blood Count 4.95 X10*6/uL (4.20-5.50); Red Cell Distribution Width 13.6 % (11.0-16.0); SCAN SMEAR FLAG 1; White Blood Count 22.2 X10*3/uL (4.8-10.8)
[2024-03-22 20:08] LABS: Alanine Aminotransferase 18 U/L (0-31); Albumin Level 3.4 g/dL (3.5-5.0); Alkaline Phosphatase 61 U/L (39-117); Anion Gap 14 (12-20); Aspartate Amino Transferase 14 U/L (5-31); Bilirubin Direct 0.1 mg/dL (0.0-0.5); Bilirubin Total 0.3 mg/dL (0.0-1.0); Blood Urea Nitrogen 23 mg/dL (9-16); Calcium 8.5 mg/dL (8.4-10.2); Carbon Dioxide 21 mmol/L (22-29); Chloride 106 mmol/L (96-108); Creatinine Clr Calc Pharmacy 77.4; Estimated Glomerular Filt Rate 58; Glucose Random 134 mg/dL (60-115); Magnesium 1.8 mg/dL (1.6-2.6); Potassium 3.6 mmol/L (3.3-5.1); Sodium 137 mmol/L (135-145); Total Protein 6.1 g/dL (6.5-8.0)
[2024-03-22 20:10] LABS: Lymphocytes Absolute Auto 6.7 X10*3/uL (1.2-4.9)
[2024-03-22 20:14] LABS: INTERNATIONAL NORM RATIO 1.1 (0.9-1.1); Prothrombin Time 12.8 SEC (11.1-13.3)
[2024-03-22 20:18] LABS: HCG Quantitative < 2 mIU/mL; Troponin-I High Sensitivity < 2.7 ng/L (<3.5-17.0)
[2024-03-22 20:20] LABS: Partial Thromboplastin Time 21.6 SEC (26.0-36.8)
[2024-03-22 20:29] LABS: SLIDE REVIEW VERIFIED
[2024-03-22 21:19] LABS: Influenza A PCR NEGATIVE (Negative); Influenza B PCR NEGATIVE (Negative); Resp Syncy Virus RNA Qual PCR NEGATIVE (Negative); SARS COV2 PCR INHOUSE NEGATIVE (Negative)
[2024-03-22 21:27] LABS: Lactic Acid 2.2 mmol/L (0.5-2.0)
[2024-03-22] MEDS: iohexoL 350 MG/ML 100 ML INFUS..BTL 85 ML IV (22:29)
[2024-03-22 22:30] VITALS: BP 117/72; BP 121/68; BP 125/71; PULSE 73; PULSE 77; PULSE 79
[2024-03-22] MEDS: cefTRIAXone sodium 1 GM in 0.9 % Sodium Chloride 50 ML IV (22:33)
[2024-03-22 22:35] VITALS: BP 117/72; PULSE 80; RESP 14; TEMP 36.6; O2SAT 95
[2024-03-22 23:11] LABS: Reflex Lactate? Lactic Acid Added
[2024-03-22 23:27] LABS: Basophils Percent Auto 0.1 % (0-2); Eosinophils Absolute Auto 0.2 X10*3/uL (0.0-0.4); Eosinophils Percent Auto 0.9 % (0-4); Hematocrit 39.3 % (37.0-47.0); Hemoglobin 13.4 g/dl (12.0-16.0); Imm Gran Pct Auto 0.6 % (0.0-0.4); Lymphocytes Absolute Auto 3.8 X10*3/uL (1.2-4.9); Lymphocytes Percent Auto 23.8 % (20-40); MANUAL DIFF FLAG SCAN; Mean Corpuscular HGB Conc 34.1 g/dl (31.0-35.0); Mean Corpuscular Hemoglobin 30.2 pg (27.0-33.0); Mean Corpuscular Volume 88.5 fL (80.0-98.0); Mean Platelet Volume 10.1 fL (9.4-12.3); Monocytes Absolute Auto 1.9 X10*3/uL (0.1-1.2); Monocytes Percent Auto 11.6 % (2-11); Platelet Count 289 X10*3/uL (160-400); Red Blood Count 4.44 X10*6/uL (4.20-5.50); Red Cell Distribution Width 13.6 % (11.0-16.0); SCAN SMEAR FLAG 1
[2024-03-22 23:45] LABS: Appearance Urine Clear; Color Urine Yellow; Glucose Urine UA Negative (Negative); Leukocyte Esterase Urine Negative (Negative); Nitrite Urine Negative (Negative); PH 6.5 (5.0-9.0); Specific Gravity - Urine >= 1.030 (1.005-1.025); UMIC TRIGGER UACC YES; Urine Blood Small (1+) (Negative); Urine Ketones Negative (Negative); Urine Protein Negative (Neg-Trace)
[2024-03-22 23:53] LABS: Troponin-I High Sensitivity 37.8 ng/L (<3.5-17.0)
[2024-03-22 23:54] LABS: Bacteria Urine None Seen (None Seen); Hyaline Casts Urine 0-2 /LPF (0-2); RBC Urine 0-2 /HPF (0-2); Squamous Epithelial Cell Urine 0-2 /HPF (0-2); WBC Urine 0-5 /HPF (0-5)
[2024-03-23] VITALS (8 sets, daily range): BP systolic 101–137; BP diastolic 55–73; PULSE 75–88; RESP 15–20; TEMP 36.4–36.9; O2SAT 97–98
--- NOTE | 2024-03-23 01:28 | P.HPHOSP_ITS ---
History of Present Illness Date of Service: 03/23/24 Chief Complaint: Syncope This is a 49-year-old female with pertinent history of partial thyroidectomy not on thyroid supplementation, not on home prescription medications who was brought for evaluation of a syncopal episode. 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 Patient states she was sitting down and felt sick. She tried to get up when she felt dizzy and lightheaded. Next thing she knew she was laid on a stretcher. No chest pain or palpitations prior to passing out. No rhythmic jerking movement of extremities. No tongue bite. No urinary bowel incontinence. Patient states that earlier today she noted about 800 cc of plasma. Patient did feel dizzy and lightheaded even after donating plasma. No history of similar symptoms in the past. No fever, chills, chest discomfort, palpitations, abdominal pain, shortness on breath, changes in urinary or bowel habits. In the emergency department, troponin was found to be elevated and Cardiology was consulted who requested admission for observation. Review of Systems 2 Constitutional: Constitutional: Reports no additional constitutional complaints Cardiovascular: Cardiovascular: Reports no additional cardiovascular complaints and Reports syncope Respiratory: Respiratory: Reports no additional respiratory complaints Gastrointestinal: Gastrointestinal: Reports no additional gastrointestinal complaints Genitourinary: Genitourinary: Reports no additional female genitourinary complaints Neurologic: Reports syncope [facility] Medical History Plantar fasciitis Claudication Pertinent family history: No family history of early CAD Social History Alcohol intake: never Smoked in Last 30 Days: No Use of substances other than those prescribed or required for medical reasons: No Advance Directives: No Advance Directives Information Provided: No Patient : No Meds Allergies Allergy/AdvReac Type Severity Reaction Status Date / Time No Known Allergies Allergy Verified 03/22/24 19:55 Physical Exam 2 Vital Signs and Narrative: Vital Signs: Last Vital Signs Temp 98.1 F 03/23/24 01:04 Pulse 81 03/23/24 01:04 Resp 15 03/23/24 01:04 BP 134/55 L 03/23/24 01:04 Pulse Ox 97 03/23/24 01:04 O2 Del Method Room Air 03/23/24 01:04 BMI result Body Mass Index 39.5 Middle-aged female lying in bed in no distress Neck supple, no JVD Regular rate and rhythm, S1-S2 heard Regular breath sounds bilaterally, no wheezing or crackles appreciated Abdomen soft nontender, no guarding, no rigidity Patient is awake, alert and oriented to self, place, time and person ; no focal motor deficit Psych: Normal mood No pedal edema Results Labs 03/22/24 23:21 03/22/24 19:44 Labs: Laboratory Results - last 24 hr 03/22/24 03/22/24 03/22/24 19:44 19:45 19:47 MCV 87.1 MCH 29.5 MCHC 33.9 RDW 13.6 Plt Count 343 MPV 10.3 Immature Gran % (Auto) 0.7 H Neut % (Auto) 57.0 Lymph % (Auto) 30.0 [place] % (Auto) 11.0 Eos % (Auto) 1.0 Baso % (Auto) 0.3 Lymph # (Auto) 6.7 H [place] # (Auto) 2.5 H Eos # (Auto) 0.2 Baso # (Auto) 0.1 Abs Immat Gran (auto) 0.16 H Absolute Neuts (auto) 12.7 H Absolute Nucleated RBC 0.000 Nucleated RBC % (auto) 0.0 Smear Tech's Comments VERIFIED PT 12.8 INR 1.1 APTT 21.6 L Anion Gap 14 Estim Creat Clear Calc 77.4 Estimated GFR 58 Random Glucose 134 H Lactic Acid Lactic Acid F/U @ 2Hr Calcium 8.5 Magnesium 1.8 Total Bilirubin 0.3 Direct Bilirubin 0.1 AST 14 ALT 18 Alkaline Phosphatase 61 Troponin I High Sens < 2.7 Total Protein 6.1 L Albumin 3.4 L Beta HCG, Quant < 2 Urine Color Urine Appearance Urine pH Ur Specific [place] Urine Protein Urine Glucose (UA) Urine Ketones Urine Blood Urine Nitrite Ur Leukocyte Esterase Urine RBC Urine WBC Ur Squamous Epith Cells Urine Bacteria Hyaline Casts Influenza Type A (PCR) Influenza Type B (PCR) RSV RNA Qual (PCR) SARS-CoV-2 RNA (RT-PCR) Blood Type O Positive Antibody Screen NEGATIVE 03/22/24 03/22/24 03/22/24 20:29 20:33 23:21 MCV 88.5 MCH 30.2 MCHC 34.1 RDW 13.6 Plt Count 289 MPV 10.1 Immature Gran % (Auto) 0.6 H Neut % (Auto) 63.0 Lymph % (Auto) 23.8 [place] % (Auto) 11.6 H Eos % (Auto) 0.9 Baso % (Auto) 0.1 Lymph # (Auto) 3.8 [place] # (Auto) 1.9 H Eos # (Auto) 0.2 Baso # (Auto) 0.0 Abs Immat Gran (auto) 0.10 H Absolute Neuts (auto) 10.0 H Absolute Nucleated RBC 0.000 Nucleated RBC % (auto) 0.0 Smear Tech's Comments PT INR APTT Anion Gap Estim Creat Clear Calc Estimated GFR Random Glucose Lactic Acid 2.2 H* Lactic Acid F/U @ 2Hr 1.0 Calcium Magnesium Total Bilirubin Direct Bilirubin AST ALT Alkaline Phosphatase Troponin I High Sens 37.8 H D Total Protein Albumin Beta HCG, Quant Urine Color Urine Appearance Urine pH Ur Specific [place] Urine Protein Urine Glucose (UA) Urine Ketones Urine Blood Urine Nitrite Ur Leukocyte Esterase Urine RBC Urine WBC Ur Squamous Epith Cells Urine Bacteria Hyaline Casts Influenza Type A (PCR) NEGATIVE Influenza Type B (PCR) NEGATIVE RSV RNA Qual (PCR) NEGATIVE SARS-CoV-2 RNA (RT-PCR) NEGATIVE Blood Type Antibody Screen 03/22/24 23:34 MCV MCH MCHC RDW Plt Count MPV Immature Gran % (Auto) Neut % (Auto) Lymph % (Auto) [place] % (Auto) Eos % (Auto) Baso % (Auto) Lymph # (Auto) [place] # (Auto) Eos # (Auto) Baso # (Auto) Abs Immat Gran (auto) Absolute Neuts (auto) Absolute Nucleated RBC Nucleated RBC % (auto) Smear Tech's Comments PT INR APTT Anion Gap Estim Creat Clear Calc Estimated GFR Random Glucose Lactic Acid Lactic Acid F/U @ 2Hr Calcium Magnesium Total Bilirubin Direct Bilirubin AST ALT Alkaline Phosphatase Troponin I High Sens Total Protein Albumin Beta HCG, Quant Urine Color Yellow Urine Appearance Clear Urine pH 6.5 Ur Specific [place] >= 1.030 H Urine Protein Negative Urine Glucose (UA) Negative Urine Ketones Negative Urine Blood Small (1+) H Urine Nitrite Negative Ur Leukocyte Esterase Negative Urine RBC 0-2 Urine WBC 0-5 Ur Squamous Epith Cells 0-2 Urine Bacteria None Seen Hyaline Casts 0-2 Influenza Type A (PCR) Influenza Type B (PCR) RSV RNA Qual (PCR) SARS-CoV-2 RNA (RT-PCR) Blood Type Antibody Screen Imaging Radiologist's Impressions: Impressions Chest X-Ray 03/22/24 20:44 IMPRESSION: No acute cardiopulmonary findings. Abdomen/Pelvis CT 03/22/24 22:15 IMPRESSION: 1. No evidence of pulmonary embolism. No acute change of chest. 2. No acute abnormality the abdomen or pelvis. Cervical Spine CT 03/22/24 22:15 IMPRESSION: 1. No acute cervical abnormalities. 2. Enlarged, heterogeneous left lobe of the thyroid. Recommend further evaluation with thyroid ultrasound. Chest CTA 03/22/24 22:15 IMPRESSION: 1. No evidence of pulmonary embolism. No acute change of chest. 2. No acute abnormality the abdomen or pelvis. Head CT 03/22/24 22:15 IMPRESSION: No acute intracranial pathology. Assessment and Plan (1) Syncope: Status: Acute Plan This is a 49-year-old female with pertinent history of partial thyroidectomy not on thyroid supplementation, not on home prescription medications who was brought for evaluation of a syncopal episode. #. Syncope, likely orthostatic in the setting of plasma donation: Resuscitated with IV crystalloids in the ER. Obtain orthostatic vital signs in a.m.. #. Elevated troponin, likely demand: Repeat in a.m. No chest pain #. Reactive leukocytosis DVT prophylaxis: None, Low risk, pt is ambulatory Full code Quality Stroke Does the patient have a stroke diagnosis?: No VTE Prior VTE?: No VTE Risk Level:: Medical - low VTE Device Contraindication: Treatment Not Indicated VTE Drug Contraindication: Treatment Not Indicated
[2024-03-23 05:20] LABS: MANUAL DIFF FLAG NO
[2024-03-23 05:23] LABS: Basophils Percent Auto 0.3 % (0-2); Eosinophils Absolute Auto 0.3 X10*3/uL (0.0-0.4); Eosinophils Percent Auto 2.2 % (0-4); Hematocrit 40.1 % (37.0-47.0); Hemoglobin 13.4 g/dl (12.0-16.0); Imm Gran Abs Auto 0.09 X10*3/uL (0.00-0.03); Imm Gran Pct Auto 0.7 % (0.0-0.4); Lymphocytes Absolute Auto 4.5 X10*3/uL (1.2-4.9); Lymphocytes Percent Auto 35.6 % (20-40); Mean Corpuscular HGB Conc 33.4 g/dl (31.0-35.0); Mean Corpuscular Hemoglobin 29.9 pg (27.0-33.0); Mean Corpuscular Volume 89.5 fL (80.0-98.0); Mean Platelet Volume 10.3 fL (9.4-12.3); Monocytes Absolute Auto 1.4 X10*3/uL (0.1-1.2); Monocytes Percent Auto 10.7 % (2-11); Neutrophils Absolute Auto 6.4 x10*3/uL (2.0-8.3); Neutrophils Percent Auto 50.5 % (45-73); Platelet Count 315 X10*3/uL (160-400); Red Blood Count 4.48 X10*6/uL (4.20-5.50); Red Cell Distribution Width 13.8 % (11.0-16.0); White Blood Count 12.7 X10*3/uL (4.8-10.8)
[2024-03-23 05:38] LABS: Anion Gap 10 (12-20); Blood Urea Nitrogen 15 mg/dL (9-16); Calcium 8.2 mg/dL (8.4-10.2); Carbon Dioxide 23 mmol/L (22-29); Chloride 108 mmol/L (96-108); Creatinine Clr Calc Pharmacy 106.7; Estimated Glomerular Filt Rate > 60; Glucose Random 84 mg/dL (60-115); Sodium 137 mmol/L (135-145)
[2024-03-23 05:51] LABS: Troponin-I High Sensitivity < 2.7 ng/L (<3.5-17.0)
--- NOTE | 2024-03-23 08:30 | PM.CNCAR ---
History of Present Illness History of Present Illness Date of Service: 03/23/24 Chief complaint: Syncope Narrative: This is a cardiology consulation regarding syncopal episode. Patient works in the ER. 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 She believes they used a new machine that is sitting. She was feeling somewhat dizzy and lightheaded. She was then working in the ER when she was sitting down and felt sick. Try to get up and got dizzy and the next thing she was on a stretcher. Currently, she states she feels fine. No other cardiac symptoms. In this context, she had troponins checked and 1 of them was slightly high and hence we are called. Patient herself does not have any cardiac issues in the past like coronary disease or cardiomyopathy. Otherwise, unlimited physical activity. Currently, no symptoms and back to her normal self. She is also ambulating. Review of Systems Review of Systems: Yes all other systems are reviewed and are negative Constitutional: Constitutional: Reports as per HPI and Reports no additional constitutional complaints Eyes: Eyes: Reports as per HPI and Denies no additional eye complaints ENT: Denies system reviewed and no additional complaints, except as documented and Reports as per HPI Cardiovascular: Cardiovascular: Reports as per HPI, Reports no additional cardiovascular complaints, Denies acrocyanosis, Denies cool extremities, Denies chest pain, Denies leg edema, Denies lightheadedness, Denies palpitations and Denies dyspnea Respiratory: Respiratory: Reports as per HPI, Denies no additional respiratory complaints and Denies dyspnea Gastrointestinal: Gastrointestinal: Reports as per HPI and Denies no additional gastrointestinal complaints Genitourinary: Genitourinary: Reports as per HPI Musculoskeletal: Musculoskeletal: Reports no additional musculoskeletal complaints and Reports as per HPI Integumentary/Breasts: Skin/Breast: Reports system reviewed and no additional complaints, except as docu Neurologic: Reports system reviewed and no additional complaints, except as documented and Reports as per HPI Psychiatric: Psychiatric: Reports no additional psychiatric complaints and Reports as per HPI Endocrine: Endocrine: Reports no additional endocrine complaints, Reports as per HPI and Denies palpitations Hematologic/Lymphatic: Hematologic/Lymphatic: Reports no additional hematologic/lymphatic complaints and Reports as per HPI Allergic/Immunologic: Allergic/Immunologic: Reports no additional allergic/immunologic complaints and Reports as per HPI COUNTS INCLUDE 234 BEDS AT THE [facility] Past Medical History Medical History Plantar fasciitis Claudication Family History Pertinent family history: No pertinent family history Social History Social History Alcohol intake: never Smoked in Last 30 Days: No Use of substances other than those prescribed or required for medical reasons: No Advance Directives: No Advance Directives Information Provided: No Patient : No service: No Meds Allergies Allergy/AdvReac Type Severity Reaction Status Date / Time No Known Allergies Allergy Verified 03/22/24 19:55 Active Medications: Current Medications Acetaminophen (Acetaminophen 325 Mg Tablet) 650 mg PO Q6H PRN PRN Reason: Pain, Mild (Pain Scale 1-3) Melatonin (Melatonin 3 Mg Tablet) 6 mg PO BEDTIME PRN PRN Reason: Insomnia Ondansetron HCl (Ondansetron Hcl 4 Mg/2 Ml Vial) 4 mg IVPUSH Q8H PRN PRN Reason: Nausea and Vomiting Sodium Chloride (0.9 % Sodium Chloride Flush 3 Ml Syringe) 3 ml IVFLUSH [facility] Medications ?Medication ?Instructions ?Recorded ?Confirmed ?Last Taken ?Type betamethasone dipropionate 0.05 % 1 appl topical BID PRN ECZEMA FLARE 03/23/24 03/23/24 Unknown History topical cream semaglutide (weight loss) 0.25 0.25 mg subcut DUFF 03/23/24 03/23/24 03/20/24 History mg/0.5 mL subcutaneous pen injector ([place]) Physical Exam Vital Signs: Vital Signs: Last Vital Signs Temp 98.4 F 03/23/24 06:28 Pulse 80 03/23/24 08:13 Resp 20 03/23/24 06:28 BP 104/66 03/23/24 08:13 Pulse Ox 98 03/23/24 06:28 O2 Del Method Room Air 03/23/24 06:28 BMI result Body Mass Index 39.5 Const: General: comfortable and no acute distress Orientation/consciousness: patient oriented x3 HEENT: Other: Unremarkable Head: Yes normal to inspection Neck: Neck: Yes normal visual inspection Chest: Chest palpation & inspection: normal inspection of the chest Resp: Auscultation: clear to auscultation bilaterally Cardio: Palpation: normal PMI Heart sounds: S1 normal heart sound present, S2 normal heart sound present, no gallops, no murmurs and no rubs GI: Palpation (GI): Soft to palpation Back/Spine/Pelvis: Other: unremarkable Skin: General skin exam: no rashes or lesions noted Neuro: General: patient oriented x3 Extrem: General: Yes normal to inspection Psych: Mental Status: mental status grossly normal Objective Labs and Meds 03/23/24 04:52 03/23/24 04:52 Lab results: Laboratory Results - last 24 hr 03/22/24 03/22/24 03/22/24 19:44 19:45 19:47 WBC 22.2 H RBC 4.95 Hgb 14.6 Hct 43.1 MCV 87.1 MCH 29.5 MCHC 33.9 RDW 13.6 Plt Count 343 MPV 10.3 Immature Gran % (Auto) 0.7 H Neut % (Auto) 57.0 Lymph % (Auto) 30.0 [place] % (Auto) 11.0 Eos % (Auto) 1.0 Baso % (Auto) 0.3 Lymph # (Auto) 6.7 H [place] # (Auto) 2.5 H Eos # (Auto) 0.2 Baso # (Auto) 0.1 Abs Immat Gran (auto) 0.16 H Absolute Neuts (auto) 12.7 H Absolute Nucleated RBC 0.000 Nucleated RBC % (auto) 0.0 Smear Tech's Comments VERIFIED PT 12.8 INR 1.1 APTT 21.6 L Sodium 137 Potassium 3.6 Chloride 106 Carbon Dioxide 21 L Anion Gap 14 BUN 23 H Creatinine 1.02 Estim Creat Clear Calc 77.4 Estimated GFR 58 Random Glucose 134 H Lactic Acid Lactic Acid F/U @ 2Hr Calcium 8.5 Magnesium 1.8 Total Bilirubin 0.3 Direct Bilirubin 0.1 AST 14 ALT 18 Alkaline Phosphatase 61 Troponin I High Sens < 2.7 Total Protein 6.1 L Albumin 3.4 L Beta HCG, Quant < 2 Urine Color Urine Appearance Urine pH Ur Specific [place] Urine Protein Urine Glucose (UA) Urine Ketones Urine Blood Urine Nitrite Ur Leukocyte Esterase Urine RBC Urine WBC Ur Squamous Epith Cells Urine Bacteria Hyaline Casts Influenza Type A (PCR) Influenza Type B (PCR) RSV RNA Qual (PCR) SARS-CoV-2 RNA (RT-PCR) Blood Type O Positive Antibody Screen NEGATIVE 03/22/24 03/22/24 03/22/24 20:29 20:33 23:21 WBC 16.0 H RBC 4.44 Hgb 13.4 Hct 39.3 MCV 88.5 MCH 30.2 MCHC 34.1 RDW 13.6 Plt Count 289 MPV 10.1 Immature Gran % (Auto) 0.6 H Neut % (Auto) 63.0 Lymph % (Auto) 23.8 [place] % (Auto) 11.6 H Eos % (Auto) 0.9 Baso % (Auto) 0.1 Lymph # (Auto) 3.8 [place] # (Auto) 1.9 H Eos # (Auto) 0.2 Baso # (Auto) 0.0 Abs Immat Gran (auto) 0.10 H Absolute Neuts (auto) 10.0 H Absolute Nucleated RBC 0.000 Nucleated RBC % (auto) 0.0 Smear Tech's Comments PT INR APTT Sodium Potassium Chloride Carbon Dioxide Anion Gap BUN Creatinine Estim Creat Clear Calc Estimated GFR Random Glucose Lactic Acid 2.2 H* Lactic Acid F/U @ 2Hr 1.0 Calcium Magnesium Total Bilirubin Direct Bilirubin AST ALT Alkaline Phosphatase Troponin I High Sens 37.8 H D Total Protein Albumin Beta HCG, Quant Urine Color Urine Appearance Urine pH Ur Specific [place] Urine Protein Urine Glucose (UA) Urine Ketones Urine Blood Urine Nitrite Ur Leukocyte Esterase Urine RBC Urine WBC Ur Squamous Epith Cells Urine Bacteria Hyaline Casts Influenza Type A (PCR) NEGATIVE Influenza Type B (PCR) NEGATIVE RSV RNA Qual (PCR) NEGATIVE SARS-CoV-2 RNA (RT-PCR) NEGATIVE Blood Type Antibody Screen 03/22/24 03/23/24 23:34 04:52 WBC 12.7 H RBC 4.48 Hgb 13.4 Hct 40.1 MCV 89.5 MCH 29.9 MCHC 33.4 RDW 13.8 Plt Count 315 MPV 10.3 Immature Gran % (Auto) 0.7 H Neut % (Auto) 50.5 Lymph % (Auto) 35.6 [place] % (Auto) 10.7 Eos % (Auto) 2.2 Baso % (Auto) 0.3 Lymph # (Auto) 4.5 [place] # (Auto) 1.4 H Eos # (Auto) 0.3 Baso # (Auto) 0.0 Abs Immat Gran (auto) 0.09 H Absolute Neuts (auto) 6.4 Absolute Nucleated RBC 0.000 Nucleated RBC % (auto) 0.0 Smear Tech's Comments PT INR APTT Sodium 137 Potassium 4.0 Chloride 108 Carbon Dioxide 23 Anion Gap 10 L BUN 15 Creatinine 0.74 Estim Creat Clear Calc 106.7 Estimated GFR > 60 Random Glucose 84 Lactic Acid Lactic Acid F/U @ 2Hr Calcium 8.2 L Magnesium Total Bilirubin Direct Bilirubin AST ALT Alkaline Phosphatase Troponin I High Sens < 2.7 D Total Protein Albumin Beta HCG, Quant Urine Color Yellow Urine Appearance Clear Urine pH 6.5 Ur Specific [place] >= 1.030 H Urine Protein Negative Urine Glucose (UA) Negative Urine Ketones Negative Urine Blood Small (1+) H Urine Nitrite Negative Ur Leukocyte Esterase Negative Urine RBC 0-2 Urine WBC 0-5 Ur Squamous Epith Cells 0-2 Urine Bacteria None Seen Hyaline Casts 0-2 Influenza Type A (PCR) Influenza Type B (PCR) RSV RNA Qual (PCR) SARS-CoV-2 RNA (RT-PCR) Blood Type Antibody Screen ECG Interpretation: EKG with sinus rhythm at 75/Min; no significant ST-T changes and otherwise unremarkable. Normal [place] and corrected QT. repeat EKGs also similar. Imaging Radiologist's impression: Impressions Chest X-Ray 03/22/24 20:44 IMPRESSION: No acute cardiopulmonary findings. Abdomen/Pelvis CT 03/22/24 22:15 IMPRESSION: 1. No evidence of pulmonary embolism. No acute change of chest. 2. No acute abnormality the abdomen or pelvis. Cervical Spine CT 03/22/24 22:15 IMPRESSION: 1. No acute cervical abnormalities. 2. Enlarged, heterogeneous left lobe of the thyroid. Recommend further evaluation with thyroid ultrasound. Chest CTA 03/22/24 22:15 IMPRESSION: 1. No evidence of pulmonary embolism. No acute change of chest. 2. No acute abnormality the abdomen or pelvis. Head CT 03/22/24 22:15 IMPRESSION: No acute intracranial pathology. Assessment and Plan (1) Syncope: Status: Acute (2) Elevated troponin: Status: Acute Plan Troponin levels are less than 2.7, 37.8 followed by less than 2.7. Lactic acid also slightly high. Overall, syncope could be related to the recent plasma donation as symptoms started after that. Do not really believe this is cardiogenic syncope. Troponin is likely from demand. She can be discharged home. Will get an outpatient echocardiogram. Discussed with Dr. Wood. Procedures Date of Service Date of Service: 03/23/24
--- NOTE | 2024-03-23 08:56 | PHA.MEDREC ---
Pharmacy Consult ? Medication Reconciliation Pharmacy has completed the medication reconciliation. Spoke with patient who was a proper historian.
[2024-03-23 09:12] LABS: Glucose, Whole Blood 121 mg/dL (60-115)
--- NOTE | 2024-03-23 09:42 | MHC.CM.PN ---
[place] 03/23/24, Pt is independent, DC plan is home, self care. CM will follow for DC needs.
--- NOTE | 2024-03-23 10:52 | PM.DS ---
DS: Providers Provider Date of Service: 03/23/24 Date of admission: 03/23/24 01:27 Primary care physician: Edin Marlow MD Consults: 03/23/24 01:38 Consult to Cardiology Routine Consulting Provider: Sung Nelson Reason for consultation: Elevated troponin. Syncope DS: Diagnosis Discharge Diagnosis (1) Syncope: Status: Acute (2) Elevated troponin: Status: Acute (3) Leukocytosis: Status: Acute (4) Lactic acidosis: Status: Acute DS: Summary Hospital Course Hospital Course: Admission note This is a 49-year-old female with pertinent history of partial thyroidectomy not on thyroid supplementation, not on home prescription medications who was brought for evaluation of a syncopal episode. 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 Patient states she was sitting down and felt sick. She tried to get up when she felt dizzy and lightheaded. Next thing she knew she was laid on a stretcher. No chest pain or palpitations prior to passing out. No rhythmic jerking movement of extremities. No tongue bite. No urinary bowel incontinence. Patient states that earlier today she noted about 800 cc of plasma. Patient did feel dizzy and lightheaded even after donating plasma. No history of similar symptoms in the past. No fever, chills, chest discomfort, palpitations, abdominal pain, shortness on breath, changes in urinary or bowel habits. In the emergency department, troponin was found to be elevated and Cardiology was consulted who requested admission for observation. Hospital course The patient was monitored overnight in ED as she had Syncope and found to have mildly elevated Troponin. Denies any chest pain. Tropnin repeat and came back negative. No EKG changes overnight. CTA Chest, CT Abd\Pel and Head\neck CT were negative for any acute findings. her syncope is likely related to blood donation and dehydration. Seen by spiritual minister who recommended an outpatient Echo as he did not feel the syncope was cardiac in origin. She was able to ambulate with no reported dizziness. Orthostatic vitals within normal. to be discharged home and follow with PCP as outpatient. Incidental finding of thyroid on CT scan: Enlarged, heterogeneous left lobe of the thyroid. to check Thyroid US as outpatient. Discharge Plan To do an ECHO as outpatient Follow with PCP Keep yourself well hydrated Time Attestation Discharge Coordination Time (in mins): 26 Quality: Safe Use of Opioids Does Pt have an Active Cancer Diagnosis on the Problem List?: No Quality: Stroke Does the patient have a stroke diagnosis?: No Physical Exam Vital Signs: Vital Signs: Last Vital Signs Temp 98.4 F 03/23/24 06:28 Pulse 80 03/23/24 08:13 Resp 20 03/23/24 06:28 BP 104/66 03/23/24 08:13 Pulse Ox 98 03/23/24 06:28 O2 Del Method Room Air 03/23/24 06:28 BMI result Body Mass Index 39.5 Const: Other: Constitutional : Awake, interactive, not in distress Neck : Normal inspection, Supple Cardiovascular : RRR, no JVP, no lower extremity edema Respiratory : good bilateral air entry, no crackles, wheezes or rhonchi Gastrointestinal: soft, lax, Normal bowel sounds, Non tender Skin : Warm, Dry Neurological : Alert & oriented x3, No focal deficit DS: Data Data Completed and Pending Labs on day of discharge: Laboratory Results - last 24 hr 03/22/24 03/22/24 03/22/24 19:35 19:44 19:45 WBC 22.2 H RBC 4.95 Hgb 14.6 Hct 43.1 MCV 87.1 MCH 29.5 MCHC 33.9 RDW 13.6 Plt Count 343 MPV 10.3 Immature Gran % (Auto) 0.7 H Neut % (Auto) 57.0 Lymph % (Auto) 30.0 [place] % (Auto) 11.0 Eos % (Auto) 1.0 Baso % (Auto) 0.3 Lymph # (Auto) 6.7 H [place] # (Auto) 2.5 H Eos # (Auto) 0.2 Baso # (Auto) 0.1 Abs Immat Gran (auto) 0.16 H Absolute Neuts (auto) 12.7 H Absolute Nucleated RBC 0.000 Nucleated RBC % (auto) 0.0 Smear Tech's Comments VERIFIED PT INR APTT Sodium 137 Potassium 3.6 Chloride 106 Carbon Dioxide 21 L Anion Gap 14 BUN 23 H Creatinine 1.02 Estim Creat Clear Calc 77.4 Estimated GFR 58 POC Glucose 121 H Random Glucose 134 H Lactic Acid Lactic Acid F/U @ 2Hr Calcium 8.5 Magnesium 1.8 Total Bilirubin 0.3 Direct Bilirubin 0.1 AST 14 ALT 18 Alkaline Phosphatase 61 Troponin I High Sens Total Protein 6.1 L Albumin 3.4 L Beta HCG, Quant Urine Color Urine Appearance Urine pH Ur Specific [place] Urine Protein Urine Glucose (UA) Urine Ketones Urine Blood Urine Nitrite Ur Leukocyte Esterase Urine RBC Urine WBC Ur Squamous Epith Cells Urine Bacteria Hyaline Casts Influenza Type A (PCR) Influenza Type B (PCR) RSV RNA Qual (PCR) SARS-CoV-2 RNA (RT-PCR) Blood Type O Positive Antibody Screen NEGATIVE 03/22/24 03/22/24 03/22/24 19:47 20:29 20:33 WBC RBC Hgb Hct MCV MCH MCHC RDW Plt Count MPV Immature Gran % (Auto) Neut % (Auto) Lymph % (Auto) [place] % (Auto) Eos % (Auto) Baso % (Auto) Lymph # (Auto) [place] # (Auto) Eos # (Auto) Baso # (Auto) Abs Immat Gran (auto) Absolute Neuts (auto) Absolute Nucleated RBC Nucleated RBC % (auto) Smear Tech's Comments PT 12.8 INR 1.1 APTT 21.6 L Sodium Potassium Chloride Carbon Dioxide Anion Gap BUN Creatinine Estim Creat Clear Calc Estimated GFR POC Glucose Random Glucose Lactic Acid 2.2 H* Lactic Acid F/U @ 2Hr Calcium Magnesium Total Bilirubin Direct Bilirubin AST ALT Alkaline Phosphatase Troponin I High Sens < 2.7 Total Protein Albumin Beta HCG, Quant < 2 Urine Color Urine Appearance Urine pH Ur Specific [place] Urine Protein Urine Glucose (UA) Urine Ketones Urine Blood Urine Nitrite Ur Leukocyte Esterase Urine RBC Urine WBC Ur Squamous Epith Cells Urine Bacteria Hyaline Casts Influenza Type A (PCR) NEGATIVE Influenza Type B (PCR) NEGATIVE RSV RNA Qual (PCR) NEGATIVE SARS-CoV-2 RNA (RT-PCR) NEGATIVE Blood Type Antibody Screen 03/22/24 03/22/24 03/23/24 23:21 23:34 04:52 WBC 16.0 H 12.7 H RBC 4.44 4.48 Hgb 13.4 13.4 Hct 39.3 40.1 MCV 88.5 89.5 MCH 30.2 29.9 MCHC 34.1 33.4 RDW 13.6 13.8 Plt Count 289 315 MPV 10.1 10.3 Immature Gran % (Auto) 0.6 H 0.7 H Neut % (Auto) 63.0 50.5 Lymph % (Auto) 23.8 35.6 [place] % (Auto) 11.6 H 10.7 Eos % (Auto) 0.9 2.2 Baso % (Auto) 0.1 0.3 Lymph # (Auto) 3.8 4.5 [place] # (Auto) 1.9 H 1.4 H Eos # (Auto) 0.2 0.3 Baso # (Auto) 0.0 0.0 Abs Immat Gran (auto) 0.10 H 0.09 H Absolute Neuts (auto) 10.0 H 6.4 Absolute Nucleated RBC 0.000 0.000 Nucleated RBC % (auto) 0.0 0.0 Smear Tech's Comments PT INR APTT Sodium 137 Potassium 4.0 Chloride 108 Carbon Dioxide 23 Anion Gap 10 L BUN 15 Creatinine 0.74 Estim Creat Clear Calc 106.7 Estimated GFR > 60 POC Glucose Random Glucose 84 Lactic Acid Lactic Acid F/U @ 2Hr 1.0 Calcium 8.2 L Magnesium Total Bilirubin Direct Bilirubin AST ALT Alkaline Phosphatase Troponin I High Sens 37.8 H D < 2.7 D Total Protein Albumin Beta HCG, Quant Urine Color Yellow Urine Appearance Clear Urine pH 6.5 Ur Specific [place] >= 1.030 H Urine Protein Negative Urine Glucose (UA) Negative Urine Ketones Negative Urine Blood Small (1+) H Urine Nitrite Negative Ur Leukocyte Esterase Negative Urine RBC 0-2 Urine WBC 0-5 Ur Squamous Epith Cells 0-2 Urine Bacteria None Seen Hyaline Casts 0-2 Influenza Type A (PCR) Influenza Type B (PCR) RSV RNA Qual (PCR) SARS-CoV-2 RNA (RT-PCR) Blood Type Antibody Screen Imaging CT scan - chest: Radiologist's impression: ITS Impressions Chest X-Ray 03/22/24 20:44 IMPRESSION: No acute cardiopulmonary findings. Abdomen/Pelvis CT 03/22/24 22:15 IMPRESSION: 1. No evidence of pulmonary embolism. No acute change of chest. 2. No acute abnormality the abdomen or pelvis. Cervical Spine CT 03/22/24 22:15 IMPRESSION: 1. No acute cervical abnormalities. 2. Enlarged, heterogeneous left lobe of the thyroid. Recommend further evaluation with thyroid ultrasound. Chest CTA 03/22/24 22:15 IMPRESSION: 1. No evidence of pulmonary embolism. No acute change of chest. 2. No acute abnormality the abdomen or pelvis. Head CT 03/22/24 22:15 IMPRESSION: No acute intracranial pathology. Discharge Plan Discharge Anticipated Discharge Date/Time: 03/23/24 10:47 Patient Disposition: Home, Self-Care Discharge Diagnosis: Syncope Referrals: Edin Marlow MD [Primary Care Provider] - 1 Week Discharge Medications: Continued betamethasone dipropionate 0.05 % cream 1 appl topical BID PRN (Reason: ECZEMA FLARE) Wegovy 0.25 mg/0.5 mL pen injector 0.25 mg subcut DUFF Discharge Orders: Discharge Order (Routine); Ordered 03/23/24 Ordered By: Kam Wood Diet: Advance to usual diet Activity on Discharge: As tolerated Stand Alone Forms: Patient Portal Discharge page Print Language: Pashto Other Ambulatory Orders: US thyroid (Routine) Timeframe: 2 Weeks Facility: [facility] - Location: Ultrasound Ordered By: Kam Wood Care Plan Goals: Read below Health Concerns: Read below Plan of Treatment: Read below Assessment: To do an ECHO as outpatient Follow with PCP Keep yourself well hydrated To do US thyroid gland as outpatient for enlarged thyroid gland.
[2024-03-23] MEDS: 0.9 % Sodium Chloride Flush 3 ML SYRINGE IVFLUSH (11:26)
== END 2024-03-23 12:10 | disposition home or self-care (01) ==
LOC: HO.ED 20:12 → HO.EDOVER 03-23 02:25
PROVIDERS: Physician Assistant; Admitting Provider Student in an Organized Health Care Education/Training Program; Emergency Provider Emergency Medicine; PCP Internal Medicine; Visit Provider Student in an Organized Health Care Education/Training Program
DX: R55 Syncope and collapse (principal); R79.89 Other specified abnormal findings of blood chemistry; D72.829 Elevated white blood cell count, unspecified; E87.20 Acidosis, unspecified; E04.9 Nontoxic goiter, unspecified; R74.02 Elevation of levels of lactic acid dehydrogenase [LDH]; Z03.818 Encounter for observation for suspected exposure to other biological agents ruled out; Z79.899 Other long term (current) drug therapy
CPT/HCPCS: 0241U; 36415; 70450; 71045; 71275; 72125; 74177; 80048; 80076; 81001; 82947; 83605; 83735; 84484; 84702; 85025; 85610; 85730; 86850; 86900; 86901; 87040; 93005; 96361; 96365; 99222; 99285; J0696; Q9967

== ENCOUNTER → 2024-03-22 20:11 | Outpatient (BNV) | payer OTHER, SELFPAY | PROVIDERS: Emergency Provider Emergency Medicine; PCP Internal Medicine; Visit Provider Student in an Organized Health Care Education/Training Program | DX: R55 Syncope and collapse (principal); R79.89 Other specified abnormal findings of blood chemistry; D72.829 Elevated white blood cell count, unspecified; E87.20 Acidosis, unspecified | CPT/HCPCS: 99235; 99499 ==

== ENCOUNTER → 2024-03-22 | Outpatient (BNV) | payer OTHER, SELFPAY | PROVIDERS: Admitting Provider Student in an Organized Health Care Education/Training Program; Emergency Provider Emergency Medicine; PCP Internal Medicine; Visit Provider Internal Medicine | DX: R55 Syncope and collapse (principal); R07.9 Chest pain, unspecified | CPT/HCPCS: 93010 ==

== ENCOUNTER → 2024-03-23 01:27 | Outpatient (BNV) | payer OTHER, SELFPAY | PROVIDERS: Admitting Provider Student in an Organized Health Care Education/Training Program; Emergency Provider Emergency Medicine; PCP Internal Medicine; Visit Provider Internal Medicine | DX: R55 Syncope and collapse (principal); R79.89 Other specified abnormal findings of blood chemistry | CPT/HCPCS: 99223 ==

== ENCOUNTER 2024-03-27 09:31 | Emergency (ER) | payer OTHER, SELFPAY ==
[2024-03-27 09:35] VITALS: BP 114/74; PULSE 82; RESP 16; TEMP 36; O2SAT 98; BMI 38.2
--- NOTE | 2024-03-27 09:40 | ED.GENADULT ---
HPI - General Adult General Chief complaint: General Medical Stated complaint: Trush Time Seen by Provider: 03/27/24 09:34 Source: patient and old records reviewed Mode of arrival: ambulatory Limitations: no limitations History of Present Illness HPI narrative: 49 yo female with PMH of partial thyroidectomy, recent syncope work up - received IV antibiotics and since then has had white rash on her tongue. No genital issues. She tried home remedies but it will not go away. No hx of this in the past. MD complaint: oral rash Onset (ago): day(s) (few) Location: mouth Radiation: non-radiation Severity: mild Quality: burning Pain Consistency: constant Relieving factors: none Exacerbating factors: other (swallowing, eating) Associated symptoms: denies other symptoms Treatments prior to arrival: other Related Data Home Medications ?Medication ?Instructions ?Recorded ?Confirmed betamethasone dipropionate 0.05 % 1 appl topical BID PRN ECZEMA FLARE 03/23/24 03/23/24 topical cream semaglutide (weight loss) 0.25 0.25 mg subcut DUFF 03/23/24 03/23/24 mg/0.5 mL subcutaneous pen injector (Wegovy) Previous Rx's ?Medication ?Instructions ?Recorded clotrimazole 10 mg jt 10 mg mucous membrane 5XD 7 days 03/27/24 #35 tabs nystatin 100,000 unit/mL oral 400,000 unit (4 mL) PO QID 10 days 03/27/24 suspension #160 mL Allergies Allergy/AdvReac Type Severity Reaction Status Date / Time No Known Allergies Allergy Verified 03/27/24 09:39 Review of Systems Review of Systems: Constitutional : No Fever, No Chills ENT/Mouth : pos tongue pain, pos [place] rash Eyes: No Eye Pain, No Swelling Cardiovascular : No Chest Pain, No SOB Respiratory : No Cough, No Sputum Gastrointestinal : No Nausea, No Vomiting, No Diarrhea Genitourinary : No Dysuria Musculoskeletal : No Myalgias Skin : No rash Neuro : No Weakness, No Numbness, No Headache PMFSH Past Medical History Attestation statement: The following information was validated with the patient. Source: old records reviewed Medical History Plantar fasciitis Claudication Social History Social History Alcohol intake: never Patient Tobacco Use Status: Never used Tobacco Advance Directives: No Advance Directives Information Provided: Yes Do you have a plan to hurt others: No Plan service: No Physical Exam ED Vital Signs: Vital Signs - 24 hr 03/27/24 09:35 03/27/24 09:44 Temperature 96.8 F 96.8 F Pulse Rate 82 82 Respiratory Rate 16 16 Blood Pressure 114/74 114/74 Pulse Oximetry 98 98 Oxygen Delivery Method Room Air Room Air BMI result Body Mass Index 38.2 Appearance: Alert. Oriented X3. No acute distress. Eyes: Pupils equal, round and reactive to light. ENT: Pharynx thick white patches on both sides of the tongue Neck: Normal inspection. Neck supple. CVS: Normal heart rate and rhythm. Pulses normal. Respiratory: No respiratory distress. Breath sounds normal. Abdomen: Soft and nontender. Skin: Skin warm and dry. Normal skin color. Normal skin turgor. Extremities: No lower extremity edema. No calf ttp Neuro: Oriented X 3. No motor deficit. No sensory deficit. Medical Decision Making Medical Decision Making [facility] Narrative: 49 yo female with PMH of partial thyroidectomy, recent syncope work up now here with c/o tongue rash and pain on tongue after antibiotics no complaints has oral thrush at this time will start on nystatin. Differential Diagnosis Differential Diagnoses: The differential diagnosis associated with the presentation includes thrush from antibiotics Lab Data [facility] Lab Attestation statement: I reviewed the patient's lab results. External Record Review External record reviewed: Inpatient record Prescription Management I considered prescription management with: Other Discharge Plan Discharge Clinical Impression: Oral thrush Patient Disposition: Home, Self-Care Instructions: Oral Candidiasis (ED) Additional Instructions: finish therapy. avoid anything that irritates your mouth. next time you go on antibiotics notify your doctor of this reaction if no response to treatment in 3 days please seek care Prescriptions: New nystatin 100,000 unit/mL suspension 400,000 unit PO QID 10 Days Qty: 160 0RF Rx Instructions: administer 1/2 of dose in each side of the mouth. retain in mouth for as long as possible before swallowing. clotrimazole 10 mg jt 10 mg mucous membrane 5XD 7 Days Qty: 35 0RF No Action betamethasone dipropionate 0.05 % cream 1 appl topical BID PRN (Reason: ECZEMA FLARE) Wegovy 0.25 mg/0.5 mL pen injector 0.25 mg subcut DUFF Interventions: ED Discharge Assessment Last Done: 03/27/24 09:44 Discharge Date/Time: 03/27/24 09:45 Print Language: Chinese
[2024-03-27 09:44] VITALS: BP 114/74; PULSE 82; RESP 16; TEMP 36; O2SAT 98
== END 2024-03-27 09:45 | disposition home or self-care (01) ==
PROVIDERS: Emergency Provider Emergency Medicine; PCP Internal Medicine
DX: B37.0 Candidal stomatitis (principal)
CPT/HCPCS: 99282; 99283